=== PATIENT | male | born 1975 | race American Indian/Alaskan Native ===

== ENCOUNTER 2019-07-30 15:13 | Emergency (ER) | payer OTHER ==
[2019-07-30 15:23] VITALS: BP 167/118
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
== END 2019-07-30 17:15 | disposition home or self-care (01) ==
LOC: ED 15:13
DX: S06.0X0A Concussion without loss of consciousness, initial encounter (principal); S16.1XXA Strain of muscle, fascia and tendon at neck level, initial encounter; F17.200 Nicotine dependence, unspecified, uncomplicated; V89.2XXA Person injured in unspecified motor-vehicle accident, traffic, initial encounter; Y93.89 Activity, other specified; Y92.89 Other specified places as the place of occurrence of the external cause; Y99.8 Other external cause status
CPT/HCPCS: 70450; 72125

== ENCOUNTER 2019-09-09 11:31 | Emergency (ER) | payer OTHER ==
--- NOTE | 2019-09-09 11:55 | Event Note ---
ED Screening Note Date of service: 09/09/19 Time: 11:52 ED Screening Note: 44 y o with new onset elevated BP with no Hx This initial assessment/diagnostic orders/clinical plan/treatment(s) is/are subject to change based on patients health status, clinical progression and re- assessment by fellow clinical providers in the ED. Further treatment and workup at subsequent clinical providers discretion. Patient/guardian urged not to elope from the ED as their condition may be serious if not clinically assessed and managed. Initial orders include: cbc,bmp
[2019-09-09] MEDS ORDERED: hydroCHLOROthiazide 25 MG TAB PO ONE (12:07)
--- NOTE | 2019-09-09 12:07 | Emergency Department Report ---
ED General Adult HPI - General Chief complaint: High BP Stated complaint: HBP Time Seen by Provider: 09/09/19 11:51 Source: patient Mode of arrival: Ambulatory Limitations: No Limitations - History of Present Illness Initial comments: 44 YO HEALTHY MALE COMES TO ER FROM [facility] OFFICE FOR ELEVATED BP READING. HE STATES THIS HAPPENS EVERY TIME HE GOES TO MD. TODAY THEY MADE HIM COME HERE NO CP NO SOB NO HX HTN RX NONE MOM AND DAD ALIVE AND WELL -: Gradual Worsens with: none Associated Symptoms: denies other symptoms - Related Data Previous Rx's Medication Instructions Recorded Last Taken Type HYDROcodone/APAP 5-325 [[place] 1 each PO Q6HR PRN #10 tablet 07/30/19 Unknown Rx 5/325] Ibuprofen [Motrin 800 MG tab] 800 mg PO Q8HR PRN #10 tablet 07/30/19 Unknown Rx methOCARBAMOL [Robaxin TAB] 500 mg PO Q6H PRN #14 tablet 07/30/19 Unknown Rx Allergies Allergy/AdvReac Type Severity Reaction Status Date / Time No Known Allergies Allergy Unverified 07/30/19 15:25 ED Review of Systems ROS: Stated complaint: HBP Other details as noted in HPI Comment: All other systems reviewed and negative ED Past Medical Hx - Past Medical History Previous Medical History?: No - Surgical History Past Surgical History?: No - Family History Family history: no significant - Social History Smoking Status: Current Every Day Smoker Substance Use Type: None - Medications Home Medications: Home Medications Medication Instructions Recorded Confirmed Last Taken Type HYDROcodone/APAP 5-325 [[place] 1 each PO Q6HR PRN #10 tablet 07/30/19 Unknown Rx 5/325] Ibuprofen [Motrin 800 MG tab] 800 mg PO Q8HR PRN #10 tablet 07/30/19 Unknown Rx methOCARBAMOL [Robaxin TAB] 500 mg PO Q6H PRN #14 tablet 07/30/19 Unknown Rx ED Physical Exam - General Limitations: No Limitations General appearance: alert, in no apparent distress - Head Head exam: Present: atraumatic, normocephalic - Eye Eye exam: Present: normal appearance - ENT ENT exam: Present: mucous membranes moist - Neck Neck exam: Present: normal inspection - Respiratory Respiratory exam: Present: normal lung sounds bilaterally. Absent: respiratory distress - Cardiovascular Cardiovascular Exam: Present: regular rate, normal rhythm. Absent: systolic murmur, diastolic murmur, rubs, gallop - GI/Abdominal GI/Abdominal exam: Present: soft, normal bowel sounds - Rectal Rectal exam: Present: deferred - Extremities Exam Extremities exam: Present: normal inspection - Back Exam Back exam: Present: normal inspection - Neurological Exam Neurological exam: Present: alert, oriented X3 - Psychiatric Psychiatric exam: Present: normal affect, normal mood - Skin Skin exam: Present: warm, dry, intact, normal color. Absent: rash ED Course Vital Signs 09/09/19 09/09/19 09/09/19 11:35 11:46 13:10 Temperature 98.8 F Pulse Rate 81 Respiratory 19 Rate Blood Pressure 177/119 Blood Pressure 177/118 156/102 [Left] O2 Sat by Pulse 98 Oximetry ED Medical Decision Making - Lab Data Result diagrams: 09/09/19 12:02 09/09/19 12:02 - Medical Decision Making NO CP NO SOB NO DONNELLY NEURO INTACT SENT BY ORTHO OFFICE DUE TO 2 INC BP READINGS ON SAME VISIT Labs 09/09/19 09/09/19 12:02 12:02 WBC 4.1 L RBC 4.71 Hgb 15.4 H Hct 46.2 H MCV 98 H MCH 33 H MCHC 33 RDW 14.1 Plt Count 188 Lymph % (Auto) 35.7 H [place] % (Auto) 8.5 H Eos % (Auto) 3.9 Baso % (Auto) 1.1 Lymph # 1.5 [place] # 0.3 Eos # 0.2 Baso # 0.0 Seg Neutrophils % 50.8 Seg Neutrophils # 2.1 Sodium 141 Potassium 4.6 Chloride 106.7 Carbon Dioxide 24 Anion Gap 15 BUN 12 Creatinine 1.3 Estimated GFR > 60 BUN/Creatinine Ratio 9 Glucose 89 Calcium 9.1 NO END ORGAN DYSFUNCTION EDUCATED PT ON BP AND BP MONITORING. PT WILL DC HOME AND MONITOR BP AND FOLLOW UP WITH PCP- REFERRAL GIVEN. ON DC; BP IS DECREASING NO CP OR SOB; NO HEADACHE NEURO INTACT. - Differential Diagnosis SENT BY MD FOR INC BP; NO HX OF HTN Critical care attestation.: If time is entered above; I have spent that time in minutes in the direct care of this critically ill patient, excluding procedure time. ED Disposition Clinical Impression: Elevated blood pressure reading, White coat syndrome with diagnosis of hypertension Disposition: DC-01 TO HOME OR SELFCARE Is pt being admited?: No Does the pt Need Aspirin: No Condition: Stable Instructions: DASH Eating Plan (ED), Hypertension (ED) Additional Instructions: LOW FAT LOW SALT DIET DRINK A LOT OF WATER EXERCISE DAILY AVOID ALCOHOL MONITOR BLOOD PRESSURE TAKE THE BP SAME TIME EVERY DAY IN THE SAME ARM RECORD IT AND TAKE TO NEXT MD APPNT REFERRAL TO PCP BELOW Referrals: AURORA JOSHI MD [Staff Physician] - 3-5 Days Time of Disposition: 12:07
[2019-09-09 12:31] LABS: Basophils % (Auto) 1.1 % (0.0-1.8); Eosinophils # (Auto) 0.2 K/mm3 (0.0-0.4); Eosinophils % (Auto) 3.9 % (0.0-4.3); Hematocrit 46.2 % (35.5-45.6); Hemoglobin 15.4 gm/dl (11.8-15.2); Lymphocytes # (Auto) 1.5 K/mm3 (1.2-5.4); Lymphocytes % (Auto) 35.7 % (13.4-35.0); Mean Corpuscular HGB Conc 33 % (32-34); Mean Corpuscular Volume 98 fl (84-94); Monocytes # (Auto) 0.3 K/mm3 (0.0-0.8); Monocytes % (Auto) 8.5 % (0.0-7.3); Red Blood Count 4.71 M/mm3 (3.65-5.03); Red Cell Distribution Width 14.1 % (13.2-15.2)
[2019-09-09 12:53] LABS: Platelet Count 188 K/mm3 (140-440)
[2019-09-09 12:54] LABS: BUN/Creatinine Ratio 9; Blood Urea Nitrogen 12 mg/dL (9-20); Calcium 9.1 mg/dL (8.4-10.2); Hemolysis Index 76
[2019-09-09 13:10] VITALS: BP 156/102
== END 2019-09-09 13:22 | disposition home or self-care (01) ==
LOC: ED 11:31
DX: I10 Essential (primary) hypertension (principal); F17.200 Nicotine dependence, unspecified, uncomplicated; Z79.899 Other long term (current) drug therapy
CPT/HCPCS: 36415; 80048; 85025